=== PATIENT | female | born 1960 | race Caucasian/White ===

== ENCOUNTER → 2018-08-31 | Day surgery (SDC) | payer OTHER | LOC: MSO 09:11 | DX: Z12.11 Encounter for screening for malignant neoplasm of colon (principal); Z90.710 Acquired absence of both cervix and uterus; Z80.42 Family history of malignant neoplasm of prostate; Z80.1 Family history of malignant neoplasm of trachea, bronchus and lung; Z80.3 Family history of malignant neoplasm of breast | CPT/HCPCS: 00812; J2704; J3010; J7120 ==

== ENCOUNTER 2021-12-06 14:02 | Outpatient (RCR) | payer OTHER | END 2021-12-30 | disposition home or self-care (01) | LOC: PT | DX: M25.512 Pain in left shoulder (principal) ==

== ENCOUNTER 2021-12-31 08:00 | Outpatient (RCR) | payer OTHER | END 2022-01-30 | disposition home or self-care (01) | LOC: PT | DX: M25.512 Pain in left shoulder (principal) ==